=== PATIENT | male | born 1985 | race Caucasian/White ===

== ENCOUNTER 2018-11-13 13:30 | Emergency (ER) | payer MEDICAID, OTHER ==
[~2018-11-13] VITALS: Ht 190.5 cm; Wt 73.5 kg
[2018-11-13 13:38] VITALS: BP 145/83
== END 2018-11-13 14:53 | disposition home or self-care (01) ==
LOC: ED 13:53
DX: A54.01 Gonococcal cystitis and urethritis, unspecified (principal)
CPT/HCPCS: 96372; 99283; J0696